=== PATIENT | male | born 1980 | race Caucasian/White ===

== ENCOUNTER 2020-04-09 10:06 | Emergency (ER) | payer BC ==
[~2020-04-09] VITALS: Ht 170.2 cm; Wt 84.4 kg
[2020-04-09 10:34] VITALS: Ht 170.2 cm; Wt 84.4 kg
[2020-04-09 11:55] VITALS: BP 130/90
== END 2020-04-09 11:55 | disposition home or self-care (01) ==
LOC: ED 10:06
DX: S61.214A Laceration without foreign body of right ring finger without damage to nail, initial encounter (principal); X50.0XXA Overexertion from strenuous movement or load, initial encounter; Y93.89 Activity, other specified; Y92.89 Other specified places as the place of occurrence of the external cause; Y99.8 Other external cause status
CPT/HCPCS: J2001; J3490

== ENCOUNTER 2020-04-15 12:17 | Emergency (ER) | payer BC ==
[~2020-04-15] VITALS: Ht 170.2 cm; Wt 85.7 kg
[2020-04-15 12:34] VITALS: Ht 170.2 cm; Wt 85.7 kg
[2020-04-15 13:05] VITALS: BP 127/85
== END 2020-04-15 13:05 | disposition home or self-care (01) ==
LOC: ED 12:17
DX: S61.214D Laceration without foreign body of right ring finger without damage to nail, subsequent encounter (principal); X58.XXXD Exposure to other specified factors, subsequent encounter